=== PATIENT | male | born 1950 | race Caucasian/White ===

== ENCOUNTER → 2017-03-30 | Outpatient (CLI) | payer OTHER ==
[~2017-03-30] MED LIST: ANASTROZOLE1 MG PO; ASPIR 8181 MG PO; COZAAR 50 MG TA50 M2 PO; CRESTOR10 MG PO; DEPO-TESTO100 MG/1 M IM; EFFIENT10 MG PO; OCUVITE TABLET1 EAC1 PO; TIMOLOL GL0.5 %/5 M1 OP; TRAVATAN Z5 ML OP
--- NOTE | ~2017-03-30 | 2DMMODE ---
[facility] [address] [place] [address] 2 D/M-MODE ECHOCARDIOGRAM Name: KIRAN YUSUF Room #: REG [facility]#: [id number] Admission: 03/30/17 Attend Phys: Felix Powers MD Discharge: Date of : 52 Date of Service: 03/30/17 1523 Report #: [id number] THIS REPORT FOR: //name// APPROVED REPORT Study performed: 03/30/2017 13:03:50 EXAM: Comprehensive 2D, Doppler, and color-flow Echocardiogram Patient Location: Out-Patient Room #: Echo lab Status: routine Other Information Study Quality: Good Indications CAD Hypertension/HDD 2D Dimensions RVDd: 37.33 mm LVEF(%): 64.49 (>50%) IVSd: 11.33 (7-11mm) LVOT Diam: 22.44 (18-24mm) LVDd: 49.42 mm PWd: 9.56 (7-11mm) LVDs: 31.97 (25-40mm) Aortic Root: 35.17 mm IVC: 18.00 mm Montesinos's LVEF: 64.49 % Volumes Left Atrial Volume (Systole) Single Plane 4CH: 48.24 mL Single Plane 2CH: 62.49 mL LA ESV Index: 27.00 mL/m2 Aortic Valve AoV Peak Carlin.: 1.28 m/s AO Peak Gr.: 6.54 mmHg LVOT Max P.18 mmHg LVOT Max V: 1.02 m/s ABBE Vmax: 3.16 cm2 Mitral Valve E/A Ratio: 1.2 MV Decel. Time: 216.88 ms MV E Max Carlin.: 0.69 m/s MV A Carlin.: 0.56 m/s MV PHT: 62.89 ms [facility] [place] [address] 2 D/M-MODE ECHOCARDIOGRAM Name: KIRAN YUSUF Room #: REG [facility]#: [id number] Admission: 03/30/17 Attend Phys: Felix Powers MD Discharge: Date of : 52 Date of Service: 03/30/17 1523 Report #: [id number] IVRT: 92.27 ms Pulmonary Valve PV Peak Carlin.: 0.99 m/s PV Peak Gr.: 3.95 mmHg Pulmonary Vein P Vein S: 0.64 m/s P Vein A: 0.31 m/s P Vein D: 0.43 m/s P Vein A Dur.: 147.6 msec P Vein S/D Ratio: 1.49 Tricuspid Valve TR Peak Carlin.: 2.51 m/s RAP Estimate: 5.00 mmHg TR Peak Gr.: 25.29 mmHg PA Pressure: 30.00 mmHg Left Ventricle The left ventricle is normal size. There is normal left ventricular wall thickness. The left ventricular systolic function is normal. The left ventricular ejection fraction is within the normal range. LVEF is 60-65%. Right Ventricle The right ventricle is normal size. The right ventricular systolic function is normal. Atria The left atrium size is normal. The right atrium size is normal. Aortic Valve The aortic valve is normal in structure. Aortic valve is calcified. Mild aortic regurgitation. There is no aortic valvular stenosis. Mitral Valve The mitral valve is normal in structure. Trace mitral regurgitation. No evidence of mitral valve stenosis. Tricuspid Valve The tricuspid valve is normal in structure. There is no tricuspid valve stenosis. There is trace tricuspid regurgitation. The right atrial pressure is estimated at 5 mmHg. There is no pulmonary hypertension. Pulmonic Valve The pulmonary valve is normal in structure. There is no pulmonic [address] [address] 2 D/M-MODE ECHOCARDIOGRAM Name: KIRAN YUSUF Room #: REG [facility]#: [id number] Admission: 03/30/17 Attend Phys: Felix Powers MD Discharge: Date of : 52 Date of Service: 03/30/17 1523 Report #: [id number] valvular stenosis. Trace pulmonic regurgitation. Great Vessels The aortic root is normal in size. IVC is normal in size and collapses >50% with inspiration. Pericardium There is no pericardial effusion. <Conclusion> The left ventricle is normal size. The left ventricular systolic function is normal. The right ventricle is normal size. The left atrium size is normal. Mild aortic regurgitation. Trace mitral regurgitation. There is trace tricuspid regurgitation. The right atrial pressure is estimated at 5 mmHg. There is no pulmonary hypertension. <ELECTRONICALLY SIGNED> By: Felix Powers MD 03/30/17 1523 1523 1523 Felix Powers MD /INF
== END ==
LOC: CV 03-23 07:08
DX: I25.10 Atherosclerotic heart disease of native coronary artery without angina pectoris (principal); I10 Essential (primary) hypertension

== ENCOUNTER → 2019-10-19 | Outpatient (CLI) | payer OTHER | LOC: SJCVCIMAG 13:03 | DX: I08.3 Combined rheumatic disorders of mitral, aortic and tricuspid valves (principal); I11.9 Hypertensive heart disease without heart failure; I25.10 Atherosclerotic heart disease of native coronary artery without angina pectoris; E78.00 Pure hypercholesterolemia, unspecified; R60.9 Edema, unspecified; M54.9 Dorsalgia, unspecified; G89.29 Other chronic pain; E11.9 Type 2 diabetes mellitus without complications; G47.30 Sleep apnea, unspecified; Z72.89 Other problems related to lifestyle ==

== ENCOUNTER → 2020-04-18 | Outpatient (CLI) | payer OTHER | LOC: SJCVC 12:56 | PROVIDERS: ATTEND Internal Medicine Cardiovascular Disease | DX: R00.1 Bradycardia, unspecified (principal); I25.10 Atherosclerotic heart disease of native coronary artery without angina pectoris; I10 Essential (primary) hypertension; E78.00 Pure hypercholesterolemia, unspecified; R60.9 Edema, unspecified ==

== ENCOUNTER → 2020-10-15 | Outpatient (CLI) | payer OTHER | LOC: SJCVCIMAG 07:45 | PROVIDERS: ATTEND Internal Medicine Cardiovascular Disease | DX: I44.0 Atrioventricular block, first degree (principal); R00.1 Bradycardia, unspecified; R06.00 Dyspnea, unspecified; R42 Dizziness and giddiness; E78.5 Hyperlipidemia, unspecified; I25.10 Atherosclerotic heart disease of native coronary artery without angina pectoris; E78.00 Pure hypercholesterolemia, unspecified; R60.9 Edema, unspecified; E11.22 Type 2 diabetes mellitus with diabetic chronic kidney disease; I12.9 Hypertensive chronic kidney disease with stage 1 through stage 4 chronic kidney disease, or unspecified chronic kidney disease; N18.9 Chronic kidney disease, unspecified; G47.30 Sleep apnea, unspecified; Z72.89 Other problems related to lifestyle; Z79.82 Long term (current) use of aspirin; Z79.899 Other long term (current) drug therapy ==

== ENCOUNTER → 2021-04-23 | Outpatient (CLI) | payer OTHER, MEDICARE | LOC: SJCVC 10:06 | PROVIDERS: ATTEND Internal Medicine Cardiovascular Disease | DX: R00.1 Bradycardia, unspecified (principal); I12.9 Hypertensive chronic kidney disease with stage 1 through stage 4 chronic kidney disease, or unspecified chronic kidney disease; E11.22 Type 2 diabetes mellitus with diabetic chronic kidney disease; N18.9 Chronic kidney disease, unspecified; I25.10 Atherosclerotic heart disease of native coronary artery without angina pectoris; E78.00 Pure hypercholesterolemia, unspecified; G47.30 Sleep apnea, unspecified; R60.9 Edema, unspecified; Z79.82 Long term (current) use of aspirin; Z79.899 Other long term (current) drug therapy ==

== ENCOUNTER → 2021-10-01 | Outpatient (CLI) | payer OTHER, MEDICARE | LOC: SJCVCIMAG 08:44 | PROVIDERS: ATTEND Internal Medicine Cardiovascular Disease | DX: I35.1 Nonrheumatic aortic (valve) insufficiency (principal); R94.31 Abnormal electrocardiogram [ECG] [EKG]; I25.10 Atherosclerotic heart disease of native coronary artery without angina pectoris; I12.9 Hypertensive chronic kidney disease with stage 1 through stage 4 chronic kidney disease, or unspecified chronic kidney disease; N18.9 Chronic kidney disease, unspecified; E78.00 Pure hypercholesterolemia, unspecified; R60.9 Edema, unspecified; R00.1 Bradycardia, unspecified; G47.33 Obstructive sleep apnea (adult) (pediatric); Z79.82 Long term (current) use of aspirin; Z79.899 Other long term (current) drug therapy; Z98.890 Other specified postprocedural states ==